=== PATIENT | male | born 1955 | race Caucasian/White ===

== ENCOUNTER 2023-06-20 11:54 | Day surgery (SDC) | payer MEDICARE, BC ==
[~2023-06-20] VITALS: Ht 182.9 cm; Wt 98.0 kg
[~2023-06-20 11:54] MED LIST: B/P MED; CHOLESTEROL FIG1 CAP; CHOLESTEROL MED; LR 1,000 ML IV SCH; NORCO 325 MG-51 TAB PO
[2023-06-20] MEDS ORDERED: fentaNYL 50 MCG/ML 2 ML VIAL ONE (12:47)
[2023-06-20] MEDS ORDERED: Lidocaine PF 2% (20 MG/ML) 5 ML VIAL ONE (12:47)
[2023-06-20] MEDS ORDERED: Ondansetron 4 MG/2 ML VIAL ONE (12:47)
[2023-06-20] MEDS ORDERED: MOBIC 7.5MG7.5 MG PO (12:53)
[2023-06-20] MEDS ORDERED: ZOCOR 20MG20 MG PO (12:54)
[2023-06-20] MEDS ORDERED: ULTRAM 50MG TAB50 MG PO (12:54)
[2023-06-20] MEDS ORDERED: XALATAN EYE DROPS OU (12:55)
[2023-06-20] MEDS ORDERED: TYLENOL 500MG500 MG PO (12:56)
[2023-06-20] MEDS ORDERED: PERCOCET 325 MG1 TA2 PO (13:30)
[2023-06-20] MEDS ORDERED: CIPRO 500MG TA500 MG PO (13:30)
[2023-06-20] MEDS ORDERED: fentaNYL 50 MCG/ML 2 ML VIAL IV PRN ×2 (14:00)
[2023-06-20] MEDS ORDERED: Ondansetron 4 MG/2 ML VIAL IV PRN ×2 (14:00)
[2023-06-20] MEDS ORDERED: HYDROmorphone 2 MG/1 ML VIAL IV PRN ×2 (14:00)
[2023-06-20 14:10] VITALS: BP 135/80; PULSE 57; TEMP 97.3
[2023-06-20 14:25] VITALS: BP 131/84; PULSE 63
[2023-06-20 14:40] VITALS: BP 146/83; PULSE 58
[2023-06-20 14:55] VITALS: BP 138/71; PULSE 60
[2023-06-20 17:39] VITALS: BP 124/81; PULSE 72; TEMP 98.2
--- NOTE | 2023-06-20 17:43 | NUR ---
1226 PT TO BAY 2 VIA WHEEL CHAIR. PT IS BREATHING EVEN AND UNLABORED, ALERT AND ORIENTED, ACCOMPANIED BY HIS . 2 PERSON ASSIST TO MOVE PT FROM WHEEL CHAIR TO CART. CONSENTS REVIEWED AND SIGNED BY PATIENT. IV ESTABLISHED. LR INFUSING VIA GRAVITY AT [facility]. CALL LIGHT IN REACH. WARM BLANKETS PROVIDED. 1433 RECEIVED POST-OP REPORT FROM BRITTANIE DUKES. 1440 PT RETURNED TO BAY 2 FROM PACU. PT IS ALERT AND ORIENTED, BREATHING EVEN AND UNLABORED ON ROOM AIR. 1450 TOAST AND JUICE PROVIDED TO PT FOR A PO CHALLENGE. PT TOLERATED WELL. 1635 EXTENSIVE TEACHING AND DEMONSTRATION DONE WITH PT AND FAMILY. WALDRON BAG REPLACED W/ 4L CAPACITY BAG AT PT'S 'S REQUEST. WALDRON SECUREMENT CHANGED TO RIGHT SIDE, AT PT'S 'S REQUEST, R/T POSITIONING OF PT'S BED IN THE HOME. 1646 PT TO LOBBY VIA WHEEL CHAIR FOR RIDE HOME WITH IN POV.
== END 2023-06-20 18:01 | disposition home or self-care (01) ==
LOC: SDCO 11:54
DX: N31.2 Flaccid neuropathic bladder, not elsewhere classified (principal); R33.9 Retention of urine, unspecified; N39.0 Urinary tract infection, site not specified
CPT/HCPCS: J0665; J0690; J2405; J2704; J3010; J7120